=== PATIENT | female | born 1990 | race Hispanic/Latino ===

== ENCOUNTER 2017-11-20 08:17 | Outpatient (CLI) | payer OTHER ==
--- NOTE | 2017-11-20 12:22 | MMO ---
BILATERAL SCREENING MAMMOGRAM: Date: 11/20/17 HISTORY: Screening. COMPARISON: None. TECHNIQUE: Bilateral screening CC and MLO mammograms. This patient's mammogram was interpreted with the assistance of computer-aided detection. FINDINGS: There is asymmetry left breast, seen on the CC only, posterior depth, outer breast. The breasts are h eterogeneously dense, which may obscure small masses. Benign-appearing calcification right breast. IMPRESSION: BIRADS 0: Incomplete: Need Additional Imaging Evaluation and/or Prior Mammograms for Comparison Spot compression and ultrasound if deemed necessary, as well as a ML mammogram of left breast recomme nded for the asymmetry seen only the CC view posterior depth outer left breast. The facility will notify the patient of the need for additional imaging services. POS: [facility]
== END 2017-11-20 08:18 | disposition home or self-care (01) ==
LOC: SCSMAMMO 08:17
PROVIDERS: ATTEND Family Medicine
DX: Z12.31 Encounter for screening mammogram for malignant neoplasm of breast (principal); Z80.3 Family history of malignant neoplasm of breast
CPT/HCPCS: 77067